=== PATIENT | male | born 1960 | race Caucasian/White ===

== ENCOUNTER 2024-07-29 09:33 | Day surgery (SDC) | payer BC, OTHER ==
[~2024-07-29 09:33] MED LIST: Lactated Ringers 1,000 ML IV SCH
[2024-07-29] MEDS: Lactated Ringers 1,000 ML IV SCH (10:24)
[2024-07-29] MEDS: Citric Acid/Sodium Citrate Solution 30 ML Cup PO ONE (10:38)
[2024-07-29] MEDS ORDERED: fentaNYL 100 MCG/2 ML SDV ONE (10:51)
[2024-07-29] MEDS ORDERED: Propofol 200 MG/20 ML SDV ONE ×3 (10:51→11:50)
== END 2024-07-29 13:24 | disposition home or self-care (01) ==
LOC: VM.SDS 09:33
PROVIDERS: ATTEND Family Medicine
DX: Z12.11 Encounter for screening for malignant neoplasm of colon (principal); K57.30 Diverticulosis of large intestine without perforation or abscess without bleeding; D12.6 Benign neoplasm of colon, unspecified; R19.5 Other fecal abnormalities; I10 Essential (primary) hypertension; J45.30 Mild persistent asthma, uncomplicated; E03.4 Atrophy of thyroid (acquired); D50.9 Iron deficiency anemia, unspecified; E78.2 Mixed hyperlipidemia; E66.09 Other obesity due to excess calories; Z68.42 Body mass index [BMI] 45.0-49.9, adult; Z79.890 Hormone replacement therapy; Z79.899 Other long term (current) drug therapy
CPT/HCPCS: 00811; A9270-GY; J2704; J3010; J7120